=== PATIENT | female | born 1965 | race Caucasian/White ===

== ENCOUNTER → 2016-09-29 | Outpatient (CLI) | payer BC ==
[~2016-09-29] MED LIST: ACET-732 PO; CHLO25TA16 PO; DOCO1CAP17 PO; LEVO200T44 PO; LOSA100T44 PO; MULT-806 PO; [UNRECOGNIZED DRUG - OTHER] PO
== END ==
LOC: WC.BC 12:49
DX: Z12.31 Encounter for screening mammogram for malignant neoplasm of breast (principal); N64.89 Other specified disorders of breast
CPT/HCPCS: 77063; G0202

== ENCOUNTER → 2016-10-07 | Outpatient (CLI) | payer BC | LOC: WC.BC 09:53 | PROVIDERS: ATTEND Family Medicine | DX: R92.2 Inconclusive mammogram (principal); D48.62 Neoplasm of uncertain behavior of left breast ==

== ENCOUNTER → 2016-10-21 | Outpatient (CLI) | payer BC ==
[~2016-10-21] MED LIST changes: +LIDOCAINE 1% 30ml (STERI-PAK) ONE; +LIDOCAINE 2%/EPI 1:100,000 20ml MDV ONE; +NORMAL SALINE 250 ML IV ONE
--- NOTE | 2016-10-22 10:16 | PROCEDUREF ---
DATE OF PROCEDURE 10/21/2016 DIAGNOSIS BEFORE PROCEDURE Suspicious cluster of calcifications at left breast demonstrated on 10/07/2016 left diagnostic mammograms. DIAGNOSIS AFTER PROCEDURE Suspicious cluster of calcifications at left breast demonstrated on 10/07/2016 left diagnostic mammograms. PROCEDURES Stereotactic image-guided percutaneous vacuum-assisted biopsy of suspicious cluster of calcifications at left breast. SURGEON Justin Tran MD FINDINGS This patient did have a cluster of segmental, fine pleomorphic calcifications at the left breast at 6 o'clock position demonstrated on a 10/07/2016 diagnostic mammogram. This was thought to be a BI-RADS category 4 (suspicious abnormality) finding. The patient actually had a series of three separate clusters of calcifications in a linear distribution at this area at the left breast. The clusters of calcifications at the left breast did appear the same on funeral home makeup artist films and on stereotactic mammogram films performed today at they had on the diagnostic mammogram films performed on 10/07/2016. The middle cluster of calcifications in this series of 3 linear clusters of calcifications was targeted and removed today. Imaging of the vacuum-assisted biopsy specimens from the procedure today did show multiple calcifications within the biopsy specimens. A left mammogram was performed after the procedure. The middle cluster of calcifications did appear to be completely removed on the unilateral left mammogram films performed after the procedure today. The biopsy site was at this area where the middle cluster of calcifications had been removed. There was a biopsy site cavity at this area, which did contain a biopsy site marker following the procedure today. The biopsy site and the marker were in the same position on the mammogram films performed after the procedure today where the middle cluster of abnormal calcifications had been located on preoperative mammogram films. DESCRIPTION OF PROCEDURE The patient was placed on the [facility]. A funeral home makeup artist film was performed with a medial approach. The calcifications were demonstrated on the funeral home makeup artist film. Stereotactic images were performed. The suspicious clusters of calcifications at the left breast were able to be demonstrated on the stereotactic images. The stereotactic images were thought to be satisfactory. Targeting was carried out with a medial approach. The stroke margin was only positive 4 mm. The biopsy needle was therefore fired before it was advanced into the breast. The skin at the biopsy site was prepped with Betadine. The skin at the biopsy site was infiltrated with lidocaine without epinephrine. A small incision was made at the left breast. The [employer] breast biopsy and excision system was used to perform the biopsies. The 9-gauge biopsy needle was advanced into the breast. The biopsy device had already been fired prior to advancement of the biopsy needle into the breast. Post-fire stereotactic images were then performed. The post-fire stereotactic images were thought to be satisfactory. There did appear to be good positioning of the 9- gauge biopsy needle in relationship to the cluster of calcifications. After the biopsy needle was documented to be in proper position in relationship to the cluster of calcifications at the left breast, lidocaine with epinephrine was infiltrated into the biopsy site through the biopsy needle. Biopsies were then performed with the [employer] Breast Biopsy and Excision System with a 9-gauge needle. Imaging of the core biopsy specimens did show multiple calcifications within the specimens. The 9-gauge biopsy needle was withdrawn from the patient. The [employer] titanium biopsy site marker was then deployed at the biopsy site. Stereotactic images were performed, and the stereotactic images did show satisfactory placement of the marking clip at the biopsy site. The same stereotactic images showed that the middle cluster of calcifications appeared to have been removed at the biopsy site. The left breast was placed in compression for a period of time. The skin incision was then closed with Dermabond. Postprocedure unilateral left mammogram films were then performed to document the position of the marking clip in relationship to the biopsy cavity. The unilateral left mammogram films were reviewed with Dr. Rigo Wagoner. Results were as described above. The patient did appear to tolerate the procedure well. [facility]. [facility]ITAL[facility]
== END ==
LOC: WC.BC 14:24
PROVIDERS: ATTEND Surgery
DX: D05.12 Intraductal carcinoma in situ of left breast (principal); R92.0 Mammographic microcalcification found on diagnostic imaging of breast; N64.89 Other specified disorders of breast
CPT/HCPCS: 19081; A4648; G0206; J7050